=== PATIENT | male | born 1955 | race Caucasian/White ===

== ENCOUNTER 2020-05-13 08:01 | Day surgery (SDC) | payer MEDICARE, BC ==
[~2020-05-13] VITALS: Ht 177.8 cm; Wt 83.1 kg
[~2020-05-13 08:01] MED LIST: AMLO5 PO; ASPI81CH PO; HYDACE5 PO; IBUP800 PO; IRBE150 PO; LEVSOD50 PO; LISI20 PO; MECL25 PO
[2020-05-13] MEDS ORDERED: Lipitor10 MG PO (08:57)
== END 2020-05-13 10:22 | disposition home or self-care (01) ==
LOC: ORSCSDS 08:01
PROVIDERS: Ophthalmology
PROC: 08RJ3JZ Replacement of Right Lens with Synthetic Substitute, Percutaneous Approach (ICD-10-PCS; principal; 2020-05-13 09:30)
DX: H25.11 Age-related nuclear cataract, right eye (principal); I10 Essential (primary) hypertension; E03.9 Hypothyroidism, unspecified; E78.00 Pure hypercholesterolemia, unspecified; Z79.899 Other long term (current) drug therapy
CPT/HCPCS: J2001; J2250; J3010; J3301; J7040; V2632

== ENCOUNTER 2020-06-10 06:48 | Day surgery (SDC) | payer MEDICARE, BC ==
[~2020-06-10] VITALS: Ht 177.8 cm; Wt 82.2 kg
[~2020-06-10 06:48] MED LIST changes: +Lipitor10 MG PO
[2020-06-10] MEDS ORDERED: Amitriptyline H10 MG PO (07:25)
== END 2020-06-10 08:30 | disposition home or self-care (01) ==
LOC: ORSCSDS 06:48
PROVIDERS: Ophthalmology
PROC: 08RK3JZ Replacement of Left Lens with Synthetic Substitute, Percutaneous Approach (ICD-10-PCS; principal; 2020-06-10 08:00)
DX: H25.12 Age-related nuclear cataract, left eye (principal); I10 Essential (primary) hypertension; E03.9 Hypothyroidism, unspecified; E78.5 Hyperlipidemia, unspecified; Z79.899 Other long term (current) drug therapy
CPT/HCPCS: J2001; J2250; J3301; J7040; V2632

== ENCOUNTER 2020-07-29 06:22 | Day surgery (SDC) | payer MEDICARE, BC ==
[~2020-07-29] VITALS: Ht 177.8 cm; Wt 82.7 kg
[~2020-07-29 06:22] MED LIST changes: +Amitriptyline H10 MG PO
--- NOTE | 2020-07-29 07:32 | NUR ---
07/29/20 0732 Juan Lopez SHELLIE-BUBLAR BLOCK TO OD BY DR HEAD PRIOR TO SURGERY START. T/O & SITE CHECK COMPLETE.
[2020-11-04] MEDS ORDERED: SYNOVACIN500 MG PO (10:33)
== END 2020-07-29 08:25 | disposition home or self-care (01) ==
LOC: ORSCSDS 06:22
PROVIDERS: Ophthalmology
PROC: 08T0XZZ Resection of Right Eye, External Approach (ICD-10-PCS; principal; 2020-07-29 07:30)
DX: H40.041 Steroid responder, right eye (principal); I10 Essential (primary) hypertension; E03.9 Hypothyroidism, unspecified; Z79.899 Other long term (current) drug therapy
CPT/HCPCS: A9270; J2001; J2250; J3010; J7040

== ENCOUNTER 2020-11-10 07:46 | Day surgery (SDC) | payer MEDICARE, BC ==
[~2020-11-10] VITALS: Ht 177.8 cm; Wt 81.5 kg
[~2020-11-10 07:46] MED LIST changes: +SYNOVACIN500 MG PO
== END 2020-11-10 10:09 | disposition home or self-care (01) ==
LOC: ORSCSDS 07:46
PROVIDERS: Surgery
PROC: 0DJD8ZZ Inspection of Lower Intestinal Tract, Via Natural or Artificial Opening Endoscopic (ICD-10-PCS; principal; 2020-11-10 09:00)
DX: Z12.11 Encounter for screening for malignant neoplasm of colon (principal); D12.2 Benign neoplasm of ascending colon; D12.8 Benign neoplasm of rectum; I10 Essential (primary) hypertension; E03.9 Hypothyroidism, unspecified; Z79.899 Other long term (current) drug therapy
CPT/HCPCS: 88305; J2405; J2704; J7120

== ENCOUNTER → 2020-12-03 | Outpatient (CLI) | payer MEDICARE, BC | END | disposition home or self-care (01) | LOC: LAB SHORT 08:07 → LAB 08:07 | DX: B35.1 Tinea unguium (principal) | CPT/HCPCS: 88305; 88312 ==

== ENCOUNTER → 2021-02-23 | Outpatient (CLI) | payer MEDICARE, BC ==
[2021-02-25 16:11] LABS: M-SPIKE, % Not Observed % (Not Observed); PROTEIN,TOTAL,URINE <4.0 mg/dL (Not Estab.)
== END ==
LOC: LAB 14:54 → LAB SHORT 14:54 → LAB FUT 02-15 14:55 → EDSTATUS 02-15 14:55
PROVIDERS: Internal Medicine
DX: R79.89 Other specified abnormal findings of blood chemistry (principal)
CPT/HCPCS: 81050; 84166; 86335